=== PATIENT | female | born 1980 | race African-American/Black ===

== ENCOUNTER 2020-10-17 20:28 | Emergency (ER) | payer OTHER ==
[~2020-10-17] VITALS: Ht 167.6 cm; Wt 63.5 kg
[2020-10-17 22:58] VITALS: BP 108/70
== END 2020-10-17 23:00 | disposition home or self-care (01) ==
LOC: ER 20:28
DX: S82.61XA Displaced fracture of lateral malleolus of right fibula, initial encounter for closed fracture (principal); X50.1XXA Overexertion from prolonged static or awkward postures, initial encounter; Y93.89 Activity, other specified; Y92.89 Other specified places as the place of occurrence of the external cause; Y99.8 Other external cause status